=== PATIENT | female | born 1970 | race Caucasian/White ===

== ENCOUNTER 2016-07-27 22:45 | Emergency (ER) | payer OTHER ==
[~2016-07-27] VITALS: Ht 167.6 cm; Wt 84.3 kg
[~2016-07-27 22:45] MED LIST: CHOL100010 PO; CYAN100020 PO; DICL-201 PO; FLUT0.15 NAE; HYDR-5688 PO; LISI40TA PO; LORA10TA51 PO; MIRA1TAB3 PO; MULT-513 PO; PRLSR20 PO
[2016-07-27 22:47] VITALS: TEMP 36.5; Ht 167.6 cm; Wt 84.3 kg
[2016-07-27] MEDS ORDERED: METHYLPREDNISOLONE 125 MG VIAL IV STA (23:21)
[2016-07-27] MEDS ORDERED: CEFTRIAXONE SOD INJ 1 GM ADDVIAL IV STA (23:21)
[2016-07-27] MEDS ORDERED: FAMOTIDINE 20MG/102 ML D5W IV STA (23:21)
[2016-07-27] MEDS ORDERED: DiphenhydrAMINE HCL 50 MG/ML VIAL IV STA (23:21)
[2016-07-27] MEDS ORDERED: SERT-234 PO (23:38)
[2016-07-27] MEDS ORDERED: BUPR75TA20 PO (23:38)
[2016-07-27] MEDS ORDERED: BUSP-8 PO (23:38)
[2016-07-27] MEDS ORDERED: ZALE5CAP29 PO (23:38)
[2016-07-27] MEDS ORDERED: ALPR-411 PO (23:39)
[2016-07-27] MEDS ORDERED: NXM/40 PO (23:39)
[2016-07-28 02:17] VITALS: BP 112/68; PULSE 85; O2SAT 98
--- NOTE | 2016-07-28 06:04 | EMERGENCY ROOM VISIT NOTE ---
History First contact with patient: 23:12 Chief Complaint: ALLERGIC REACTION Stated Complaint: HIVES,UTI Nursing Triage Summary: "I have a bad UTI. They gave me some meds and it didn't work". Prednisone, Augmentin, Hydroxisine. Hives started about 3 days ago. Hives from neck down History of Present Illness The patient is a 45 year old female who presents to the Emergency Room with complaints of rash and UTI for the past 3 days. The patient has had a rash for the past 3 days, and went to her primary care physician for a UTI 2 days ago. Her urine culture was sensitive to Cipro and sulfa, however the patient is allergic to these medications. She was given a prescription of Augmentin but has not started this medication. She was given a prescription for prednisone and hydroxyzine for her rash, but only took one dose of the prednisone without relief of symptoms. The patient has not had worsening of her symptoms, but she is very pruritic. She is without chest pain or shortness of breath. No swelling of her throat. No abdominal pain, nausea, or vomiting. She rates her overall discomfort a 5/10. Review of Systems More than 10 systems were reviewed and otherwise negative with the exception of history of present illness. Past Medical/Surgical History Medical Problems: (1) Bipolar disorder (2) Depression (3) HTN (hypertension) Surgical Problems: (1) H/O: hysterectomy Social History Smoking Status: Former Smoker Alcohol Use: none Housing Status: lives with family Current/Historical Medications Scheduled Bupropion (Wellbutrin), 75 MG PO QAM Buspirone Hcl (Buspirone Hcl), 10 MG PO TID Esomeprazole Magnesium (Nexium), 40 MG PO QAM Lisinopril (Zestril), 40 MG PO HS Mirabegron (Myrbetriq Er), 50 MG PO QAM Sertraline (Zoloft), 200 MG PO QAM Zaleplon (Sonata), 5-10 MG PO HS Scheduled PRN Alprazolam (Xanax), 0.5 MG PO TID PRN for Anxiety and/or Sedation Allergies Coded Allergies: Ciprofloxacin (Verified Allergy, Intermediate, RASH, 07/27/16) Paroxetine (Verified Allergy, Intermediate, THROAT SWELLS, 08/03/15) Sulfa Antibiotics (Verified Allergy, Unknown, UNKNOWN, 08/03/15) Physical Exam Vital Signs Date Time Temp Pulse Resp B/P Pulse Ox O2 Delivery O2 Flow Rate FiO2 07/28/16 02:17 85 18 112/68 98 07/28/16 01:17 79 16 135/63 96 Room Air 07/27/16 23:07 83 07/27/16 22:52 97 Room Air 07/27/16 22:47 36.5 85 18 128/64 97 Room Air Pain Rating (0-10): 0 Physical Exam VITALS: Vitals are noted on the nurse's note and reviewed by myself. Vital signs stable. GENERAL: Well-developed, well-nourished, female, who is in no acute distress and resting comfortably. Patient is cooperative with the examination. HEAD: Normocephalic atraumatic. MOUTH: Mucous membranes moist. Tonsils are not enlarged. Pharynx without erythema, blood, or exudate. Uvula midline. Airway patent. NECK: Supple without nuchal rigidity. No lymphadenopathy. No thyromegaly. Cervical spine is nontender. HEART: Regular rate and rhythm without murmurs gallops or rubs. LUNGS: Clear to auscultation bilaterally without wheezes, rales or rhonchi. No retractions or accessory muscle use. ABDOMEN: Positive normal bowel sounds x 4. Soft, nontender, without masses or organomegaly. No guarding or rebound tenderness. MUSCULOSKELETAL: No muscle atrophy, erythema, or edema noted. Full range of motion without joint tenderness in all extremities. SKIN: The skin was with diffuse urticarial rash throughout the abdomen, chest, extremities Medical Decision & Procedures Medications Administered Medications (Trade) Dose Ordered Sig/Ghulam Route Start Time Stop Time Status Last Admin Dose Admin Diphenhydramine HCl (Benadryl Inj) 25 mg NOW STAT IV 07/27/16 23:21 07/27/16 23:24 DC 07/27/16 23:39 25 MG Methylprednisolone Sodium Succinate (Solu-Medrol IV) 125 mg NOW STAT IV 07/27/16 23:21 07/27/16 23:24 DC 07/27/16 23:39 125 MG Ceftriaxone Sodium (Rocephin Inj) 1 gm NOW STAT IV 07/27/16 23:21 07/27/16 23:24 DC 07/27/16 23:44 1 GM Famotidine (Pepcid 20mg/100 ml) 20 mg ONE STAT IV 07/27/16 23:21 07/27/16 23:24 DC 07/28/16 00:09 20 MG ED Course Physical exam and history were performed. Nursing notes and EMR were reviewed. Patient appears to have an allergic reaction to unknown allergen. She has diffuse urticaria throughout. She does not appear to be in anaphylaxis. IV access was established and the patient was medicated with IV Solu-Medrol, IV Benadryl, and IV Pepcid. She is placed on the monitor. The patient was reevaluated multiple times over the course of several hours. She had slow and persistent improvement of her symptoms. She was no longer pruritic and did have blanching of her urticaria. While she was here and was able to review the patient's outpatient urine culture. She does have a drug resistant UTI that is susceptible to Rocephin. The patient was given a dose of 1 g IV here. Overall the patient appears stable for discharge home. She does have outpatient antibiotics for her UTI that she has not started. She was instructed to begin this. Additionally she does have steroids that she can use at home. The patient is to begin these medications. She was otherwise invited back to the ER with any new, worsening, or concerning symptoms. The chart was completed utilizing [employer] Speech Voice Recognition Software. Grammatical errors, random word insertions, pronoun errors, and incomplete sentences are an occasional consequence of this system due to software limitations, ambient noise, and hardware issues. Any formal questions or concerns about the content, text, or information contained within the body of this dictation should be directly addressed to the provider for clarification. . Medical Decision Differential diagnosis: Etiologies such as allergic reaction, anaphylaxis, urticaria, Pedroza-Burak syndrome, toxic epidermal necrolysis, erythema multiforme, cellulitis, as well as others were entertained. Impression Primary Impression: Allergic reaction Departure Information Dispostion Home / Self-Care Condition GOOD Referrals Holden Anglin M.D. (PCP) Forms HOME CARE DOCUMENTATION FORM, IMPORTANT VISIT INFORMATION Patient Instructions My [facility] Additional Instructions You were seen and evaluated today on an emergency basis only. This is not a substitute for, or an effort to provide, complete comprehensive medical care. It is not possible to recognize and treat all injuries or illnesses in a single emergency department visit. For this reason it is recommended that you followup with your primary care physician next week for ongoing care and evaluation. Continue prednisone and other medications as prescribed. You are welcome to return to the emergency department anytime with new, worsening, or concerning symptoms.
== END 2016-07-28 02:15 | disposition home or self-care (01) ==
LOC: C.EDB 22:45 → C.EDC 07-28 02:15
DX: T78.40XA Allergy, unspecified, initial encounter (principal); X58.XXXA Exposure to other specified factors, initial encounter; I10 Essential (primary) hypertension; F31.9 Bipolar disorder, unspecified; Z90.710 Acquired absence of both cervix and uterus; Z87.891 Personal history of nicotine dependence; Z79.899 Other long term (current) drug therapy; Z88.2 Allergy status to sulfonamides; Z88.8 Allergy status to other drugs, medicaments and biological substances